=== PATIENT | male | born 1970 | race African-American/Black ===

== ENCOUNTER 2018-10-06 08:06 | Observation (INO) ==
[2018-10-06] MEDS ORDERED: ASPIRIN 325 MG TABLET PO STA (08:33)
[2018-10-06] MEDS ORDERED: MORPHINE 4 MG/1 ML VIAL IV STA (08:33)
[2018-10-06] MEDS ORDERED: ONDANSETRON 4 MG/2 ML VIAL IV STA (08:33)
[2018-10-06 08:48] LABS: Basophils % 0.3 % (0.0-0.8); Eosinophils # 0.2 10*3/uL (0.0-0.87); Eosinophils % 2.3 % (0.00-10.9); Hemoglobin 15.3 GM/DL (14.0-18.0); Immature Granulocytes % 0.3 %; Immature Granulocytes Absolute 0.02 #; Lymphocytes # 2.2 10*3/uL (1.4-4.0); Lymphocytes % 33.1 % (21.2-54.2); Mean Corpuscular Hemoglobin 29 PG (27-34); Mean Corpuscular Volume 85.7 FL (87-102); Mean Platelet Volume 10.1 FL (9.6-12.0); Monocytes # 0.5 10*3/uL (0.11-0.8); Monocytes % 7.1 % (1.7-12.7); Neutrophils # 3.8 10*3/uL (1.4-7.4); Neutrophils % 56.9 % (38.7-73.9); Platelet Count 239 T/CUMM (130-400); Red Blood Count 5.25 MC/CUMM (3.8-5.5); Red Cell Distribution Width 13.1 % (9.3-17.3); White Blood Count 6.6 T/CUMM (4-12)
[2018-10-06 08:58] LABS: PT Patient Result 10.1 SECS; Partial Thromboplastin Time 25.9 SECS (0-40)
[2018-10-06 09:04] LABS: Albumin 4.3 G/DL (3.4-5.0); Bilirubin,Total 0.4 MG/DL (0.2-1.0); Calcium 9.2 MG/DL (8.5-10.1); Osmolality,Calculated 279.4 MOS/KG (273-304); Potassium 3.7 MMOL/L (3.5-5.1); Total Protein 7.8 G/DL (6.4-8.3)
[2018-10-06] MEDS ORDERED: SODIUM CHLORIDE 0.9% 1,000 ML IV SCH (11:16)
[2018-10-06] MEDS ORDERED: ONDANSETRON 4 MG/2 ML VIAL IV PRN (11:16)
[2018-10-06] MEDS ORDERED: ACETAMINOPHEN 325 MG TABLET PO PRN (11:16)
[2018-10-06] MEDS: DOCUSATE SODIUM 100 MG CAPSULE PO SCH (21:22)
[2018-10-07 04:34] LABS: Risk Ratio 4.47; VLDL CHOLESTEROL 18.4 MG/DL
[2018-10-07] MEDS ORDERED: PANTOPRAZOLE 40 MG TABLET PO SCH (09:00)
[2018-10-07 12:58] VITALS: BP 114/63
[2018-10-07] MEDS: DOCUSATE SODIUM 100 MG CAPSULE PO SCH (13:49)
== END 2018-10-07 15:34 | disposition home or self-care (01) ==
LOC: N.EDINP 08:06 → N.ED 08:06 → N.EDINP 11:36 → N.2W 11:37 → N.TELES 13:43
PROVIDERS: ADMIT Family Medicine; ATTEND Family Medicine